=== PATIENT | female | born 1985 | race Caucasian/White ===

== ENCOUNTER 2024-07-04 18:37 | Observation (INO) | payer SELFPAY ==
[2024-07-04] VITALS (17 sets, daily range): BP systolic 104–186; BP diastolic 75–116; PULSE 70–104; RESP 11–23; TEMP 36.7–37; O2SAT 93–99; BMI 31.3
--- NOTE | 2024-07-04 18:49 | CTR_ITS ---
PROCEDURE INFORMATION: Exam: CT Head Without Contrast Exam date and time: 07/04/2024 6:55 PM Age: 39 years old Clinical indication: Stroke-like symptoms; RT lower extremity weakness; Additional info: CVA symptoms TECHNIQUE: Imaging protocol: Computed tomography of the head without contrast. Radiation optimization: All CT scans at this facility use at least one of these dose optimization techniques: automated exposure control; mA and/or kV adjustment per patient size (includes targeted exams where dose is matched to clinical indication); or iterative reconstruction. Other technique: STROKE PROTOCOL was implemented. COMPARISON: No relevant prior studies available. RADIATION DOSE METRICS: Total DLP (mGy-cm): 1053.58 FINDINGS: Brain: Normal. No hemorrhage. Unremarkable white matter. No mass effect. Cerebral ventricles: No ventriculomegaly. Paranasal sinuses: Visualized sinuses are unremarkable. No fluid levels. Mastoid air cells: Visualized mastoid air cells are well aerated. Bones: Unremarkable. No acute fracture. Soft tissues: Unremarkable. CT/CT head wo con* [id number] IMPRESSION: No acute intracranial abnormality. ASSESSMENT: ASPECTS ([facility] Stroke Program Early CT Score) is 10.
--- NOTE | 2024-07-04 18:49 | XRR_ITS ---
PROCEDURE INFORMATION: Exam: XR Chest Exam date and time: 07/04/2024 7:09 PM Age: 39 years old Clinical indication: Shortness of breath and other: AMS; Additional info: Altered mental status TECHNIQUE: Imaging protocol: Radiologic exam of the chest. Views: 1 view. COMPARISON: No relevant prior studies available. FINDINGS: Lungs: Unremarkable. No consolidation. Pleural spaces: Unremarkable. No pleural effusion. No pneumothorax. Heart/Mediastinum: Unremarkable. No cardiomegaly. Bones/joints: Unremarkable. XR/XR chest 1V portable [id number] IMPRESSION: No acute findings.
[2024-07-04 18:55] LABS: Glucose Point of Care 158 mg/dL (70-110)
--- NOTE | 2024-07-04 18:55 | CTR_ITS ---
PROCEDURE INFORMATION: Exam: CTA Head With Contrast, Arteriography Exam date and time: 07/04/2024 7:00 PM Age: 39 years old Clinical indication: Weakness; Additional info: CVA workup TECHNIQUE: Imaging protocol: Computed tomographic angiography of the head with contrast. Exam focused on the arteries. 3D rendering (Not supervised by radiologist): MIP and/or 3D reconstructed images were created by the technologist. Radiation optimization: All CT scans at this facility use at least one of these dose optimization techniques: automated exposure control; mA and/or kV adjustment per patient size (includes targeted exams where dose is matched to clinical indication); or iterative reconstruction. Contrast material: OMNIPAQUE 350; Contrast volume: 100 ml; Contrast route: INTRAVENOUS (IV); COMPARISON: CT head wo con* [id number] 07/04/2024 6:55 PM RADIATION DOSE METRICS: Total DLP (mGy-cm): 426.42 FINDINGS: ANTERIOR CIRCULATION: Right internal carotid artery: Intracranial segment is patent with no significant stenosis. No aneurysm. Right middle cerebral artery: No occlusion or significant stenosis. No aneurysm. Right anterior cerebral artery: No occlusion or significant stenosis. No aneurysm. Left internal carotid artery: Intracranial segment is patent with no significant stenosis. No aneurysm. Left middle cerebral artery: No occlusion or significant stenosis. No aneurysm. Left anterior cerebral artery: No occlusion or significant stenosis. No aneurysm. POSTERIOR CIRCULATION: Right vertebral artery: No occlusion or significant stenosis. No aneurysm. Left vertebral artery: No occlusion or significant stenosis. No aneurysm. Basilar artery: No occlusion or significant stenosis. No aneurysm. Right posterior cerebral artery: No occlusion or significant stenosis. No aneurysm. Left posterior cerebral artery: No occlusion or significant stenosis. No aneurysm. Brain: No definite mass, mass effect, or midline shift. Cerebral ventricles: No ventriculomegaly. Bones/joints: Unremarkable. No acute fracture. Soft tissues: Unremarkable. PROCEDURE INFORMATION: Exam: CTA Neck With Contrast Exam date and time: 07/04/2024 7:00 PM Age: 39 years old Clinical indication: Weakness; Additional info: CVA workup TECHNIQUE: Imaging protocol: Computed tomographic angiography of the neck with contrast. Exam focused on the cervical segments of the vasculature. 3D rendering (Not supervised by radiologist): MIP and/or 3D reconstructed images were created by the technologist. Radiation optimization: All CT scans at this facility use at least one of these dose optimization techniques: automated exposure control; mA and/or kV adjustment per patient size (includes targeted exams where dose is matched to clinical indication); or iterative reconstruction. Contrast material: OMNIPAQUE 350; Contrast volume: 100 ml; Contrast route: INTRAVENOUS (IV); COMPARISON: CT head wo con* [id number] 07/04/2024 6:55 PM RADIATION DOSE METRICS: Total DLP (mGy-cm): 426.42 FINDINGS: Right common carotid artery: No stenosis. No dissection or occlusion. Right internal carotid artery: No stenosis of the extracranial segment. No dissection or occlusion. Right external carotid artery: No occlusion or stenosis of the origin. Left common carotid artery: No stenosis. No dissection or occlusion. Left internal carotid artery: No stenosis of the extracranial segment. No dissection or occlusion. Left external carotid artery: No occlusion or stenosis of the origin. Right vertebral artery: No stenosis. No dissection or occlusion. Left vertebral artery: No stenosis. No dissection or occlusion. Soft tissues: Normal. No significant soft tissue swelling. Bones/joints: No acute fracture. CT/CT angio headneck* [id number] IMPRESSION: No large vessel stenosis or occlusion. IMPRESSION: No stenosis or occlusion. REFERENCES: NASCET CRITERIA. The degree of stenosis in the cervical segment of the internal carotid artery is based on NASCET criteria. Normal is no stenosis. Mild is less than 50% stenosis. Moderate is 50-69% stenosis. Severe is 70% to 99% stenosis. Total occlusion is no detectable patent lumen.
[2024-07-04 19:06] LABS: Basophils % 0.3 %; Eosinophils # 0.2 10^3/uL (0.0-0.8); Eosinophils % 2.1 %; Hematocrit 47.3 % (36-47); Lymphocytes # 2.8 10^3/uL (0.8-4.8); Lymphocytes % 28.5 %; Mean Corpuscular HGB Conc 33.6 g/dL (30-55); Mean Corpuscular Hemoglobin 31.4 pg (27-33); Mean Corpuscular Volume 93.5 fl (85-98); Mean Platelet Volume 10.6 fL (7.4-10.4); Monocytes # 0.5 10^3/uL (0.2-0.9); Monocytes % 4.8 %; Neutrophils # 6.26 10^3/uL (1.8-7.7); Neutrophils % 63.9 %; Nucleated Red Blood Cells % 0 %; Platelet Count 372 10^3/cmm (157-399); Red Blood Count 5.06 10^6/uL (3.85-5.65); Red Cell Distribution Width 11.6 % (12.1-15.1)
--- NOTE | 2024-07-04 19:13 | ECG_ITS ---
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 Measurements Intervals [place] Rate: 85 P: 45 CT: 128 QRS: 59 QRSD: 86 T: 37 QT: 352 QTc: 420 Interpretive Statements SINUS RHYTHM POSSIBLE LEFT ATRIAL ENLARGEMENT [-0.1mV P-WAVE IN V1/V2] No previous ECG available for comparison Electronically Signed On 07-04-2024 23:26:29 CDT by Maida Morrell M.D. [email or web address]
[2024-07-04] MEDS: iohexol 350 mg/mL 500 mL Btl (per mL) IV (19:15)
[2024-07-04 19:37] LABS: Bilirubin Urine Negative (Negative); Blood Urine Negative (Negative); Glucose Urine UA Negative (Normal); Ketones Urine Negative (Negative); Leukocyte Esterase Urine Negative (Negative); Nitrate Urine Negative (Negative); Protein Urine Negative (Negative); Urine Appearance Clear (CLEAR); Urine Color Yellow (Yellow); Urobilinogen Urine 0.2 mg/dL (Negative)
[2024-07-04 19:37] LABS: Partial Thromboplastin Time 26.1 SECONDS (23.9-36.7)
--- NOTE | 2024-07-04 19:37 | ED_ITS ---
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 Patient presents to the ER by EMS for further assessment and management. Associated symptoms: Deny abdominal pain, chest pain, fever(s), headache(s) or nausea Related Data Allergies Allergy/AdvReac Type Severity Reaction Status Date / Time No Known Allergies Allergy Verified 07/04/24 18:45 Review of Systems 2 General: Reports: 10 or more systems reviewed and unremarkable except in HPI and below Const: Denies: fever(s), chills, fatigue or malaise Eyes: Denies: change in vision or blurry vision Card: Denies: chest pain or palpitations Resp: Denies: dyspnea or productive cough GI: Denies: abdominal pain, nausea or vomiting : Denies: flank pain Musc: Denies: extremity pain or extremity swelling Skin/Breast: Denies: rash or pruritus Neuro: Reports: weakness in extremities, sensory changes and Slurred speech present; Denies: headache(s) Psych: Denies: anxiety or depression [place]/Lymph: Denies: easy bleeding All/Imm: Denies: urticaria, throat swelling or facial swelling [facility] ED 2 Female Reproductive History: Date of last menstrual period: 06/02/24 Physical Exam 2 Const: COMMON NORMALS: no acute distress, patient oriented x3 and healthy appearing (Patient appears to have somewhat slightly slurred speech on exam with quest) OTHER: Questionable left lower drift of the left lower leg noted full sensation noted distally with slightly slurred speech and right-sided nasolabial fold reduction no other focal neurodeficits appreciated and formal NIH appears to be less than 3-4. HENMT: COMMON NORMALS: normocephalic and atraumatic HEAD & SCALP: n ormocephalic and atraumatic Eye: COMMON NORMALS: Equal, round and reactive pupils present and EOMs intact bilaterally PUPIL: Yes Equal, round and reactive pupils present Neck/C-Spine: COMMON NORMALS: full ROM, supple and no JVD Lymph: LYMPHATIC: no lymphadenopathy noted Chest: COMMONS NORMALS: normal inspection of the chest and normal palpation of entire chest wall Resp: COMMON NORMALS: normal respiratory effort, No retractions and clear to auscultation bilaterally EFFORT & INSPECTION: Yes able to speak in complete sentences and Yes symmetric chest movement AUSCULTATION: clear to auscultation bilaterally Cardio: COMMON NORMALS: no JVD, regular rate and regular rhythm RATE: r egular rate RHYTHM: regular rhythm GI: COMMON NORMALS: Normal to inspection, nondistended, normoactive bowel sounds present, Soft to palpation and non-tender INSPECTION: Yes normal to inspection PALPATION: Yes Soft to palpation : COMMON NORMALS: Yes no CVA tenderness BLADDER/KIDNEY EXAM: Yes no CVA tenderness Back/Pelvis: COMMON NORMALS: no CVA tenderness Extremity: COMMON NORMALS: normal to inspection and full ROM Neuro: COMMON NORMALS: patient oriented x3, CN's II-XII intact bilaterally, moves all extremities and no focal motor deficits Psych: COMMON NORMALS: mental status grossly normal, Normal thought process present, cooperative and normal affect THOUGHT PROCESS: Normal thought process present Skin: COMMON NORMALS: no rashes or lesions noted GENERAL SKIN EXAM: no rashes or lesions noted Course 2 Vital Signs: Vital signs: Vital Signs Temperature 98.1 F 07/04/24 18:38 Pulse Rate 104 H 07/04/24 19:54 Respiratory Rate 18 07/04/24 18:38 Blood Pressure 186/115 07/04/24 19:54 Pulse Oximetry 98 07/04/24 19:54 Oxygen Delivery Me thod Room Air 07/04/24 18:38 MDM - Syncope Medical Decision Making Patient immediately upon presentation was noted be a level [address] imaging the head without contrast came back negative discussed patient's case with Dr. Luna on-call neurologist in which based upon patient's current symptoms this does not currently qualify for TNKase or tPA. I will continue to follow with CT angiogram of the head and neck as well as additional workup. Discussed patient's case, Dr. Luna that recommends admission to the hospitalist with MRI imaging the morning additional workup for the patient's associated symptoms. The patient remained in stable condition her symptoms are starting to improve she is still noted to be somewhat hypertensive. Patient will be placed in observation status discussed patient's case to Dr. Walker on- call hospitalist is granted acceptance observation to ICU. Lab Data I reviewed the patient's lab results. 07/04/24 18:47 07/04/24 18:47 Radiology Impressions Chest X-Ray 07/04/24 18:49 IMPRESSION: No acute findings. Head CT 07/04/24 18:49 IMPRESSION: No acute intracranial abnormality. ASSESSMENT: ASPECTS ([facility] Stroke Program Early CT Score) is 10. ADDENDUM: 07/04/241922 Findings were discussed with CYNTHIA SHIELDS at 07/04/2024 7:20 PM CDT. Head/Neck CTA 07/04/24 18:55 IMPRESSION: No large vessel stenosis or occlusion. IMPRESSION: No stenosis or occlusion. REFERENCES: NASCET CRITERIA. The degree of stenosis in the cervical segment of the internal carotid artery is based on NASCET criteria. Normal is no stenosis. Mild is less than 50% stenosis. Moderate is 50-69% stenosis. Severe is 70% to 99% stenosis. Total occlusion is no detectable patent lumen. Laboratory Results WBC 9.80 10^3/uL (3.29-11.43) 07/04/24 18:47 RBC 5.06 10^6/uL (3.85-5.65) 07/04/24 18:47 Hgb 15.90 g/dL (11.27-16.99) 07/04/24 18:47 Hct 47.3 % (36-47) H 07/04/24 18:47 MCV 93.5 fl (85-98) 07/04/24 18:47 MCH 31.4 pg (27-33) 07/04/24 18:47 MCHC 33.6 g/dL (30-55) 07/04/24 18:47 RDW 11.6 % (12.1-15.1) L 07/04/24 18:47 Plt Count 372 10^3/cmm (157-399) 07/04/24 18:47 MPV 10.6 fL (7.4-10.4) H 07/04/24 18:47 Neut % (Auto) 63.9 % 07/04/24 18:47 Lymph % (Auto) 28.5 % 07/04/24 18:47 [place] % (Auto) 4.8 % 07/04/24 18:47 Eos % (Auto) 2.1 % 07/04/24 18:47 Baso % (Auto) 0.3 % 07/04/24 18:47 Neut # (Auto) 6.26 10^3/uL (1.8-7.7) 07/04/24 18:47 Lymph # (Auto) 2.8 10^3/uL (0.8-4.8) 07/04/24 18:47 [place]ley # (Auto) 0.5 10^3/uL (0.2-0.9) 07/04/24 18:47 Eos # (Auto) 0.2 10^3/uL (0.0-0.8) 07/04/24 18:47 Baso # (Auto) 0.0 10^3/uL (0.0-0.1) 07/04/24 18:47 Nucleated RBC % (auto) 0 % 07/04/24 18:47 Nucleated RBCs # 0.0 /100WBC 07/04/24 18:47 APTT 26.1 SECONDS (23.9-36.7) 07/04/24 18:47 POC Glucose 158 mg/dL (70-110) H 07/04/24 18:52 Urine Color Yellow (Yellow) 07/04/24 19:28 Urine Appearance Clear (CLEAR) 07/04/24 19:28 Urine pH 7.0 (5-7) 07/04/24 19:28 Ur Specific [place] 1.080 (1.005-1.030) H 07/04/24 19:28 Urine Protein Negative (Negative) 07/04/24 19:28 Urine Glucose (UA) Negative (Normal) 07/04/24 19:28 Urine Ketones Negative (Negative) 07/04/24 19:28 Urine Blood Negative (Negative) 07/04/24 19:28 Urine Nitrate Negative (Negative) 07/04/24 19:28 Urine Bilirubin Negative (Negative) 07/04/24 19:28 Urine Urobilinogen 0.2 mg/dL (Negative) 07/04/24 19:28 Ur Leukocyte Esterase Negative (Negative) 07/04/24 19:28 Urine RBC 0-2 /hpf (0-2) 07/04/24 19:28 Urine WBC 11-20 /hpf (0-5) H 07/04/24 19:28 Ur Squamous Epith Cells 6-10 /hpf (0-5) 07/04/24 19:28 Amorphous Sediment Not Reportable 07/04/24 19:28 Urine Bacteria 1+ /hpf (NONE) H 07/04/24 19:28 Hyaline Casts 0-4 /lpf H 07/04/24 19:28 Urine Opiates Screen Negative ng/mL (Negative) 07/04/24 19:28 Ur Barbiturates Screen Negative ng/mL (Negative) 07/04/24 19:28 Ur Phencyclidine Scrn Negative ng/mL (Negative) 07/04/24 19:28 Ur Amphetamines Screen Negative ng/mL (Negative) 07/04/24 19:28 U Benzodiazepines Scrn Negative ng/mL (Negative) 07/04/24 19:28 Urine Cocaine Screen Negative ng/mL (Negative) 07/04/24 19:28 U Marijuana (THC) Screen Negative ng/mL (Negative) 07/04/24 19:28 Blood Type O Positive 07/04/24 19:12 Rho(D) Type Rh positive 07/04/24 19:12 Antibody Screen Negative 07/04/24 19:12 Crossmatch See Detail 07/04/24 19:12 All radiology interpretation(s) finalized by discharge Discharge Plan Discharge Patient Disposition: Placed in Observation Clinical Impression: [id number]-[id number] syndrome Coding Level of Care Code ED [employer]urb[employer]rector for Kem Hamilton
[2024-07-04 19:41] LABS: Add Urine Microscopic? YES; Bacteria Urine 1+ /hpf; Hyaline Casts Urine 0-4 /lpf; RBC Urine 0-2 /hpf (0-2)
[2024-07-04] MEDS: labetalol 5 mg/mL SDV 20mL 10 MG IV (19:53)
--- NOTE | 2024-07-04 19:59 | PC.NURSE ---
While attempting to administer 10mg/2ml of labetalol, patient received 5mg/1ml until she stated Stop! It feels warm. IV patent.
[2024-07-04 20:25] LABS: Amphetamines Screen Urine Negative (Negative); Barbiturates Screen Urine Negative (Negative); Benzodiazepines Screen Urine Negative (Negative); Cocaine Screen Urine Negative (Negative); Opiate Screen Urine Negative (Negative); PCP Screen Urine Negative (Negative); THC Screen Urine Negative (Negative)
--- NOTE | 2024-07-04 20:41 | PM.HP ---
Providers/Chief Complaint Chief Complaint: Syncope History of Present Illness Avril Lange is a 39 year old female with a past medical history significant for bipolar disorder who presents emergency department with strokelike symptoms with onset at 4:30 PM today. Patient reports she was driving when symptoms occurred. She been driving 11 hours today traveling from [facility] to [place]. She states she got an overwhelming sensation consisting of the smell of coffee without any coffee around. Her symptoms then proceeded to have slurred speech, left-sided weakness, lightheadedness and presyncopal symptoms. She denies any prior similar episodes before. She states she only takes Abilify for history of bipolar disorder. She reports her dose has been very stable. She denies any other triggers or alleviating or aggravating factors. She denies any family history of neurological disease, TIAs or stroke. She denies any personal history of seizure disorder, neurological disease, TIAs or strokes. Patient noted to be hypertensive in the emergency department. She denies prior history of hypertension. She states her blood pressure is usually around 140/70. 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 Patient discussed with ED provider. She reportedly presented as a level 1 stroke activation. Her initial NIH score was 3. She was reportedly discussed with [facility] [place] Luna by ED provider who reportedly recommended against thrombolytics. Recommended admission with MRI. Review of Systems Narrative: A complete review of systems was obtained and is negative except as stated in HPI. Medications/Allergies Allergies Allergy/AdvReac Type Severity Reaction Status Date / Time No Known Allergies Allergy Verified 07/04/24 18:45 PFSH Acute PFSH: Medical History (Updated 07/04/24 @ 21:13 by Delroy Walker MD) Bipolar disorder Surgical History (Updated 07/04/24 @ 21:07 by Delroy Walker MD) No significant past surgical history Family History (Updated 07/04/24 @ 21:07 by Delroy Walker MD) Denies family history of Stroke Social History (Updated 07/04/24 @ 21:07 by Delroy Walker MD) Smoking and tobacco/nicotine status: never used tobacco/nicotine Alcohol intake: never Substance/Drug Use: never Female Reproductive History: Date of last menstrual period: 06/02/24 Vitals/I&O/Wt Last Vital Signs Temp 98.1 F 07/04/24 18:38 Pulse 104 H 07/04/24 19:54 Resp 18 07/04/24 18:38 BP 186/115 07/04/24 19:54 Pulse Ox 98 07/04/24 19:54 O2 Del Method Room Air 07/04/24 18:38 Weight last 48 hrs Weight 90.718 kg Physical Exam Narrative: General: Patient is awake and alert. Pleasant. Head: EOM intact. Subtle left facial droop. Neck: No JVD. Cardiovascular: RRR. No gallops. No murmurs. Lungs: Clear to auscultation, no use of accessory muscles, no crackles or wheezes. Skin: No jaundice. No rashes. Abdomen: Normal bowel sounds, abdomen soft and nontender. Genito Urinary: Genital exam not performed since complaints not related. Rectal: Rectal exam not performed since no symptoms indicated blood loss. Extremities: No cyanosis or clubbing. Musculoskeletal: No swollen or erythematous joints. Neurological: Moves all 4 extremities. No myoclonus. Data 07/04/24 18:47 07/04/24 18:47 A&P Assessment and plan (1) Stroke-like symptoms: (2) Elevated blood pressure reading: (3) Hyperglycemia: (4) Bipolar disorder: Plan Strokelike episode - Lateralizing symptoms concerning for TIA or stroke - CT head, CTA head neck negative for acute stroke - MRI ordered - Neurochecks - Aspiration precautions - Seizure precautions - Start DAPT, Statin - Lipids, A1c in AM - Bedside swallow - Echo with bubble - Stroke protocol Elevated blood pressures - Allow permissive hypertension Presyncope - Echo ordered - Telemetry monitoring - Fall precautions Hyperglycemia - A1c in AM History of bipolar disorder - Plan continue home medications DVT prophylaxis: Lovenox CODE STATUS: Full code PDMP PDMP Reviewed: Not Reviewed Attestations Medical Necessity Statement*: Patient presents with strokelike episodes concerning for underlying TIA or stroke versus other neurological disorder with expected hospitalization not to cross 2 midnights for further workup. Coding Level of Care Code Acute Code for Chg Fwd Diagnoses Stroke-like symptoms R29.90 Elevated blood pressure reading R03.0 Hyperglycemia R73.9 Bipolar disorder F31.9
[2024-07-04] MEDS: sodium chloride 0.9% 500 ML 999 ML IV (20:46)
[2024-07-04] MEDS: sodium chloride 0.9% 1,000 ML 999 ML IV (20:46)
[2024-07-04 21:52] LABS: Troponin(5th) Baseline < 6 ng/L (0-10)
[2024-07-04 22:02] LABS: Alanine Aminotransferase 28 U/L (0-33); Albumin Level 4.5 g/dL (3.5-5.2); Alkaline Phosphatase 103 U/L (35-105); Blood Urea Nitrogen 14 mg/dL (6-20); Carbon Dioxide 26 mmol/L (22-29); Chloride 98 mmol/L (98-107); Creatinine Clr Calc Pharmacy 85.6077; Globulin 2.7 g/dL (1.3-4.6); Glomerular Filtration Rate 61.1 mL/min (90-130); Glucose 138 mg/dL (65-115); NT Pro B Type Natriuretic Pept < 36 pg/mL (0-125); Osmolality Calculated 287 mOsm/kg (285-295); Sodium 137 mmol/L (136-145); Total Bilirubin 0.7 mg/dL (0.15-1.2); Total Protein 7.2 g/dL (6.6-8.7)
[2024-07-04 22:03] LABS: Anion Gap 16.8 (5-19); Aspartate Amino Transferase 19 U/L (0-32); Potassium 3.8 mmol/L (3.5-5.1)
[2024-07-04 22:08] LABS: Troponin 5 2HR < 6.0 ng/L (0-10); Troponin 5 2HR Delta 0 ABS# (0-10)
[2024-07-05] VITALS (28 sets, daily range): BP systolic 116–150; BP diastolic 80–110; PULSE 34–92; RESP 15–26; TEMP 36.8; O2SAT 92–100
--- NOTE | 2024-07-05 00:25 | PC.NURSE ---
Pt refused Lovenox injection. Educated about risk of clotting with immobility due to hospitalization. Denied tobacco use, hormonal control, and immobility. Stated if anything abnormal in cardiac work-up was found she would be agreeable to taking, but at this point did not feel it was necessary.
[2024-07-05 00:57] LABS: Chol HDL Ratio 3.31 mg/dL (0.0-4.40); Cholesterol 205 mg/dL (0-200); HDL Cholesterol 62 mg/dL (60-100); LDL Cholesterol Calculated 123 mg/dL (50-129); LDL HDL Ratio 1.98 RATIO (0.00-3.22); Triglycerides 98 mg/dL (0-150)
[2024-07-05 01:01] LABS: Estmated Average Glucose 114; Hemoglobin A1C 5.6 % (4.0-6.0)
--- NOTE | 2024-07-05 02:33 | PC.NURSE ---
Entered room for neuro assessment. Pt stated she felt funny and left side was tingly . Noted slight left facial droop, left other spatial scientist significantly less than right, drift to left hand, and delay in movement of left leg. Dr. Walker notified of same, no new orders. After approx 15 min symptoms began to resolve, and pt stated she had metallic taste in her mouth.
--- NOTE | 2024-07-05 02:57 | PC.NURSE ---
Neuro symptoms resolved. Stated that she had vision changes and felt like her neck was stiff and she was unable to move it during earlier episode. Sister at bedside and stated that she has had non-epileptic seizures for four years.
[2024-07-05] MEDS: acetaminophen 325 mg Tablet 650 MG PO (03:09)
[2024-07-05] MEDS: enoxaparin 40 mg/0.4 mL Syringe SUBCUT (04:52)
--- NOTE | 2024-07-05 05:04 | PC.NURSE ---
Pt has had episodes of left sided weakness x4, each lasting 10-15 min before resolving. States she feels tingling to affected side then weakness and blurred vision. Stated at this time that symptoms were right sided instead of left, also lasting 10-15 min before resolving. Pt. stated she has been diagnosed with focal seizures that precede bad headaches as well.
--- NOTE | 2024-07-05 07:43 | MR_ITS ---
WS: [id number] MRI BRAIN WITH AND WITHOUT CONTRAST HISTORY: seizures COMPARISON: CT head 07/04/2024 TECHNIQUE: Multiplanar imaging performed through the brain with MultiHance 20 ml's IV. No acute infarcts are seen. Daniels-white matter differentiation is well preserved. Normal hippocampal formations. No susceptibility artifacts or prior lacunar infarcts. Ventricles and extra-axial spaces are normal. Clivus and pituitary gland are normal. Visualized posterior fossa and brainstem are also normal. No enhancing masses. LEFT frontal lobe venous angioma. Dural venous sinuses are normal. Paranasal sinuses: Well aerated with no significant disease. Mastoid air cells: Normal. Calvarium and scalp: Normal. MR/MR head wo/w con [id number] IMPRESSION: 1. No acute infarct or prior infarct. 2. No enhancing masses. 3. LEFT frontal lobe venous angioma. 4. Normal hippocampal formations.
--- NOTE | 2024-07-05 07:54 | PM.CONSULT ---
Providers/Reason For Consult Consulting Physician/Specialty*: Velasquez Luna MD neurology and epilepsy Reason for Consult*: Episode of lightheadedness/near syncope causing the patient to cake puller during a long drive from [facility] to [place] with recurrent episode 45 minutes later described as experiencing an aura described as a strong coffee smell followed by near syncope and weakness in the left arm while driving. 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 The patient stated that she was traveling on 07/04/2024 driving from [facility] to [place]. The patient stated she had been driving for approximately 11 hours and suddenly experienced an episode of lightheadedness/near syncope causing the patient to cake puller during a long drive from [facility] to [place]. The patient stated that she rolled down her tilt tray driver's window and then got out of the car and walked around to give herself a break from the driving. The patient stated that approximately 4 to 5 minutes she felt better and therefore resumed driving. But, she experienced a recurrent episode 45 minutes later described as experiencing an aura described as a strong coffee smell followed by near syncope and weakness in the left arm while driving. The patient reports a sister with a history of epilepsy. There is no family history of strokes. The patient stated that she called 911 and EMS brought the patient to [facility] emergency department. In the emergency room the patient stated that her blood pressure was elevated. The patient underwent CT angiogram of the head and neck and noncontrast head CT which were reported to be unrevealing. CBC and comprehensive metabolic panel revealed elevated creatinine of 1.1. Glucose was mildly elevated at 138. Point of contact glucose Accu-Chek 158. NIH stroke score = 0. As a result the patient was admitted to ICU to be evaluated for possible new onset temporal lobe seizures. The patient was scheduled to have head MRI with and without contrast on 07/05/2024. On neurological assessment on 07/05/2024 the patient is currently asymptomatic and examination is nonfocal. 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 Review of Systems General: Reports: 10 or more systems reviewed and unremarkable except in HPI and below Medications/Allergies Home Medications ?Medication ?Instructions ?Recorded ?Confirmed ?Last Taken ?Type No Known Home Medications 07/05/24 07/05/24 Unknown History Allergies Allergy/AdvReac Type Severity Reaction Status Date / Time No Known Allergies Allergy Verified 07/04/24 18:45 Current Medications Generic Name Dose Route Start Last Admin Trade Name Freq PRN Reason Stop Dose Admin Acetaminophen 650 mg 07/04/24 23:28 07/05/24 03:09 Acetaminophen 325 Mg Tablet PO 650 mg Q6H PRN Administration FEVER Enoxaparin Sodium 40 mg 07/05/24 05:00 07/05/24 04:52 Enoxaparin 40 Mg/0.4 Ml Syringe SUBCUT 40 mg Q24H CYNDI Administration Labetalol HCl 10 mg 07/04/24 19:16 07/04/24 19:53 Labetalol 5 Mg/Ml Sdv 20ml IV 10 mg Q10M PRN Administration Prior to thrombolytic for BP>185/110 PFSH Acute PFSH: Medical History (Updated 07/05/24 @ 08:07 by Velasquez Luna MD) Bipolar disorder Surgical History (Updated 07/04/24 @ 21:07 by Delroy Walker MD) No significant past surgical history Family History (Updated 07/04/24 @ 21:07 by Delroy Walker MD) Denies family history of Stroke Social History (Updated 07/04/24 @ 21:07 by Delroy Walker MD) Smoking and tobacco/nicotine status: never used tobacco/nicotine Alcohol intake: never Substance/Drug Use: never Female Reproductive History: Date of last menstrual period: 06/02/24 Vitals/I&O/Wt Last Vital Signs Temp 98.6 F 07/04/24 23:45 Pulse 72 07/05/24 06:00 Resp 22 H 07/05/24 05:00 BP 131/92 07/05/24 05:00 Pulse Ox 96 07/05/24 05:00 O2 Del Method Room Air 07/04/24 23:30 07/04/24 07/05/24 07/05/24 22:59 06:59 14:59 Intake Total 1740 / 1740 Balance 1740 / 1740 Weight last 48 hrs Weight 204 lb Weight 204 lb Weight 200 lb Physical Exam Narrative: Blood pressure slightly elevated 122/100. NIH stroke score = 0 The patient is alert and oriented x 3. Speech fluent. Head normocephalic. Neck supple. Cranial nerves II through XII intact. Pupils 4 mm. Motor testing 5/5 bilaterally. Throat clear. Heart regular rhythm and rate. Lungs clear. Extremities were negative for cyanosis. Deep tendon reflex reportedly symmetrical. Data 07/04/24 18:47 07/04/24 18:47 A&P Assessment and plan (1) Near syncope: Impression: 1. Episode of lightheadedness/near syncope causing the patient to cake puller during a long drive from [facility] to [place] with recurrent episode 45 minutes later described as experiencing an aura described as a strong coffee smell followed by near syncope and weakness in the left arm while driving. Plan: 1. Agree with obtaining head MRI with and without contrast to assess for space-occupying lesions and to assess for mesial temporal sclerosis 2. Syncope/seizure precautions per state law and per hospital protocol until patient has been thoroughly evaluated with EEG monitoring to confirm or exclude a underlying seizure disorder 3. Fall precautions 4. Recommend patient obtain EEG monitoring to further assess for epilepsy (note: [facility] does not have inpatient EEG monitoring or ability to perform long-term EEG monitoring). The patient stated that she will be living in [place] and the facility there has ability for long-term EEG monitoring. 5. If head MRI with and without contrast is unrevealing and patient stable from medical standpoint, patient can be discharged and referred to a neurologist and/or epileptologist to complete her neurological workup with EEG monitoring to confirm or exclude a diagnosis of epilepsy. (2) Aura: PDMP PDMP Reviewed: Not Reviewed Consult Attestations Medical Necessity Statement: The patient was evaluated by neurology for recurrent near syncope Coding Level of Care Code 25967 Diagnoses Near syncope R55 Aura R29.818
[2024-07-05] MEDS: gadobenate dimeglumine 20 mL vial IV (08:39)
[2024-07-05] MEDS: aspirin 81 mg EC Tablet PO (09:22)
--- NOTE | 2024-07-05 11:36 | MR_ITS ---
WS: [id number] MRA ANGIOGRAPHY IQUGMI[place] OF ENG HISTORY: new seizures, venous angioma COMPARISON: CT angiogram 07/04/2024 TECHNIQUE: 3-D MR angiography is performed of the [place]. All images are reviewed including source images. Distal RIGHT vertebral artery is small caliber as also noted on the prior CT angiogram. Vertebral artery may communicate with the PICA. Dominant LEFT vertebral artery is patent. Normal basilar artery and posterior cerebral arteries. Posterior communicating arteries are both patent. No aneurysms. Intracranial portion of the internal carotid arteries are normal course and caliber. No significant atherosclerosis, stenosis or aneurysm identified. Hypoplastic RIGHT A1 segment but it is patent and enhancing normally. Dominant LEFT A1 segment. A2 segments and anterior communicating artery is normal. Normal middle cerebral arteries. No paucity of vessels in the distal middle cerebral artery territory. No occlusions or thrombus. No aneurysm. MR/MR angio head wo con [id number] IMPRESSION: 1. Small caliber and absent distal RIGHT vertebral artery is probably a normal variant. Similar to the CT angiogram findings. 2. No aneurysms within the [place]. 3. Hypoplastic RIGHT A1 segment. 4. No occlusions in the middle cerebral arteries or atherosclerotic disease.
--- NOTE | 2024-07-05 14:30 | PC.OT ---
OT EVALUATION/SCREENING COMPLETED. PATIENT DEMONSTRATES NO DEFICITS OF VISUAL PERCEPTION, AROM OR MX STRENGTH. NO FURTHER SKILLED OT REQUIRED AT THIS TIME
--- NOTE | 2024-07-05 14:48 | P.PN_ITS ---
Subjective 2 Subjective: Seen this morning. Symptoms have improved however patient is slightly dizzy which she attributes to being in bed for so long and now she just sat up at the edge of the bed. Neuroexam normal. MRI head completed, left frontal lobe venous angioma. Vitals/I&O/Wt Last Vital Signs Temp 98.6 F 07/04/24 23:45 Pulse 82 07/05/24 13:00 Resp 24 H 07/05/24 13:00 BP 138/107 07/05/24 12:00 Pulse Ox 98 07/05/24 07:00 O2 Del Method Room Air 07/04/24 23:30 07/04/24 07/05/24 07/05/24 22:59 06:59 14:59 Intake Total 1740 / 1740 700 / 700 Balance 1740 / 1740 700 / 700 Weight last 48 hrs Weight 92.533 kg Weight 92.533 kg Weight 90.718 kg Physical Exam 2 Narrative: General: Patient is awake and alert. Pleasant. Head: EOM intact. Cardiovascular: RRR. No gallops. No murmurs. Lungs: Clear to auscultation, no use of accessory muscles, no crackles or wheezes. Abdomen: Normal bowel sounds, abdomen soft and nontender. Extremities: No cyanosis or clubbing. Musculoskeletal: No swollen or erythematous joints. Neurological: nonfocal Data 07/04/24 18:47 07/04/24 18:47 A&P Assessment and plan (1) Stroke-like symptoms: (2) Elevated blood pressure reading: (3) Hyperglycemia: (4) Bipolar disorder: Plan Strokelike episode - Lateralizing symptoms concerning for TIA or stroke - CT head, CTA head neck negative for acute stroke - MRI ordered - Neurochecks - Aspiration precautions - Seizure precautions - Start DAPT, Statin - Lipids, A1c in AM - Bedside swallow - Echo with bubble - Stroke protocol Elevated blood pressures - Allow permissive hypertension Presyncope - Echo ordered - Telemetry monitoring - Fall precautions Hyperglycemia - A1c in AM History of bipolar disorder - Plan continue home medications DVT prophylaxis: Lovenox CODE STATUS: Full code 07/05/2024 MRI head shows left frontal lobe angioma. Discussed with neurology at length over the phone. MRI brain recommended at this time. Will order. Further recommendations to be made after above results. Patient will likely require continuous video EEG monitoring going forward and possible transfer to a facility with that capability. Echocardiogram pending Continue aspiration precautions seizure precautions Continue DAPT, statin PT OT Discussed with Dr. Luna over the phone. PDMP PDMP Reviewed: Not Reviewed Attestations 2 Medical Necessity Statement*: Awaiting workup of new onset seizure. Will likely require transfer to higher level care for continuous video EEG monitoring. Diagnoses Stroke-like symptoms R29.90 Elevated blood pressure reading R03.0 Hyperglycemia R73.9 Bipolar disorder F31.9
--- NOTE | 2024-07-05 17:35 | P.TS_ITS ---
Transfer Summary Providers Date of Admission: 07/04/24 20:35 Date of Discharge/Transfer: 07/05/24 Attending Provider at Admission: Delroy Walker MD Attending Provider at Transfer: Marilee Davenport MD Transfer Plans: Anticipated date of transfer: 07/05/24 . Diagnoses at Discharge Discharge Diagnosis (1) Stroke-like symptoms: Status: Acute (2) Elevated blood pressure reading: Status: Acute (3) Hyperglycemia: Status: Acute (4) Bipolar disorder: Status: Acute Reason for Visit Reason for Visit Syncope Brief History: As per Dr. Walker vAril Lange is a 39 year old female with a past medical history significant for bipolar disorder who presents emergency department with strokelike symptoms with onset at 4:30 PM today. Patient reports she was driving when symptoms occurred. She been driving 11 hours today traveling from [facility] to [place]. She states she got an overwhelming sensation consisting of the smell of coffee without any coffee around. Her symptoms then proceeded to have slurred speech, left-sided weakness, lightheadedness and presyncopal symptoms. She denies any prior similar episodes before. She states she only takes Abilify for history of bipolar disorder. She reports her dose has been very stable. She denies any other triggers or alleviating or aggravating factors. She denies any family history of neurological disease, TIAs or stroke. She denies any personal history of seizure disorder, neurological disease, TIAs or strokes. Patient noted to be hypertensive in the emergency department. She denies prior history of hypertension. She states her blood pressure is usually around 140/70. 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 Patient discussed with ED provider. She reportedly presented as a level 1 stroke activation. Her initial NIH score was 3. She was reportedly discussed with [facility] neurologist Dr. Luna by ED provider who reportedly recommended against thrombolytics. Recommended admission with MRI. Hospital Course Hospital Course Initially secondary to patient's symptoms she got admitted for possibility of strokelike episode. She was evaluated by neurology and is not a candidate for tPA. Symptoms had resolved this morning. She was started on aspirin statin Plavix. Seizure was never witnessed. Neurology evaluated the patient and recommended MRI brain which was completed. MRI shows left frontal lobe venous angioma which is most likely thought to be a incidental finding at this point. Seizure precautions syncope precautions per state law are recommended. MRA head also completed with no acute pathology. Neurology has evaluated the patient and is recommending further assessment for epilepsy with EEG monitoring. Patient is traveling from [place] to [place] at this time. She is experiencing intermittent left arm numbness symptoms. Stroke has been ruled out. Patient will need further neurological workup. We will be transferring her to higher level of care to complete that. Call placed to [facility] in [place]. Awaiting callback to discuss with on-call neurologist. Physical Exam Narrative: General: Patient is awake and alert. Pleasant. Head: EOM intact. Cardiovascular: RRR. No gallops. No murmurs. Lungs: Clear to auscultation, no use of accessory muscles, no crackles or wheezes. Abdomen: Normal bowel sounds, abdomen soft and nontender. Extremities: No cyanosis or clubbing. Musculoskeletal: No swollen or erythematous joints. Neurological: nonfocal TS Data Studies Completed and Pending Pending at discharge Category Date Time Status Basic Metabolic Panel AM LABS Lab 07/06/24 04:00 Ordered Complete Blood Count w/Auto AM LABS Lab 07/06/24 04:00 Ordered Magnesium AM LABS Lab 07/06/24 04:00 Ordered CV. echo w/w bubble cont [id number] Routine Ultrasound 07/05/24 00:01 Taken Completed Studies During Hospitalization Category Date Time Status CT angio head neck [CT angio headneck* [id number]] Cat Scan 07/04/24 18:[address] head wo con* [id number] Stat Cat Scan 07/04/24 18:49 Completed XR chest 1V portable [id number] Stat Exams 07/04/24 18:49 Completed MR head wo/w con [id number] Routine MRI 07/05/24 07:43 Completed MRA head [MR angio head wo con [id number]] Stat MRI 07/05/24 11:36 Completed Laboratory Last Values WBC 9.80 10^3/uL (3.29-11.43) 07/04/24 18:47 RBC 5.06 10^6/uL (3.85-5.65) 07/04/24 18:47 Hgb 15.90 g/dL (11.27-16.99) 07/04/24 18:47 Hct 47.3 % (36-47) H 07/04/24 18:47 MCV 93.5 fl (85-98) 07/04/24 18:47 MCH 31.4 pg (27-33) 07/04/24 18:47 MCHC 33.6 g/dL (30-55) 07/04/24 18:47 RDW 11.6 % (12.1-15.1) L 07/04/24 18:47 Plt Count 372 10^3/cmm (157-399) 07/04/24 18:47 MPV 10.6 fL (7.4-10.4) H 07/04/24 18:47 Neut % (Auto) 63.9 % 07/04/24 18:47 Lymph % (Auto) 28.5 % 07/04/24 18:47 [place] % (Auto) 4.8 % 07/04/24 18:47 Eos % (Auto) 2.1 % 07/04/24 18:47 Baso % (Auto) 0.3 % 07/04/24 18:47 Neut # (Auto) 6.26 10^3/uL (1.8-7.7) 07/04/24 18:47 Lymph # (Auto) 2.8 10^3/uL (0.8-4.8) 07/04/24 18:47 [place] # (Auto) 0.5 10^3/uL (0.2-0.9) 07/04/24 18:47 Eos # (Auto) 0.2 10^3/uL (0.0-0.8) 07/04/24 18:47 Baso # (Auto) 0.0 10^3/uL (0.0-0.1) 07/04/24 18:47 Nucleated RBC % (auto) 0 % 07/04/24 18:47 Nucleated RBCs # 0.0 /100WBC 07/04/24 18:47 APTT 26.1 SECONDS (23.9-36.7) 07/04/24 18:47 Sodium 137 mmol/L (136-145) 07/04/24 18:47 Potassium 3.8 mmol/L (3.5-5.1) 07/04/24 18:47 Chloride 98 mmol/L (98-107) 07/04/24 18:47 Carbon Dioxide 26 mmol/L (22-29) 07/04/24 18:47 Anion Gap 16.8 (5-19) 07/04/24 18:47 BUN 14 mg/dL (6-20) 07/04/24 18:47 Creatinine 1.0 mg/dL (0.5-0.9) H 07/04/24 18:47 GFR Calculation 61.1 mL/min (90-130) L 07/04/24 18:47 Glucose 138 mg/dL (65-115) H 07/04/24 18:47 POC Glucose 158 mg/dL (70-110) H 07/04/24 18:52 Estimat Average Glucose 114 07/04/24 18:47 Hemoglobin A1c 5.6 % (4.0-6.0) 07/04/24 18:47 Calculated Osmolality 287 mOsm/kg (285-295) 07/04/24 18: Calcium 9.0 mg/dL (8.5-10.5) 07/04/24 18: Total Bilirubin 0.7 mg/dL (0.15-1.2) 07/04/24 18:47 AST 19 U/L (0-32) 07/04/24 18: ALT 28 U/L (0-33) 07/04/24 18:47 Alkaline Phosphatase 103 U/L (35-105) 07/04/24 18:47 Troponin T Baseline < 6 ng/L (0-10) 07/04/24 18: Troponin T 120 Minute < 6.0 ng/L (0-10) 07/04/24 20:20 Delta Troponin T 0 ABS# (0-10) 07/04/24 20:20 C-Reactive Protein 3.0 mg/L (0.0-4.9) 07/04/24 18:47 NT-Pro-B Natriuret Pep < 36 pg/mL (0-125) 07/04/24 18:47 Total Protein 7.2 g/dL (6.6-8.7) 07/04/24 18:47 Albumin 4.5 g/dL (3.5-5.2) 07/04/24 18: Globulin 2.7 g/dL (1.3-4.6) 07/04/24 18:47 Triglycerides 98 mg/dL (0-150) 07/04/24 20:20 Cholesterol 205 mg/dL (0-200) H 07/04/24 20:20 LDL Cholesterol, Calc 123 mg/dL (50-129) 07/04/24 20:20 HDL Cholesterol 62 mg/dL (60-100) 07/04/24 20:20 LDL/HDL Ratio 1.98 RATIO (0.00-3.22) 07/04/24 20:20 Cholesterol/HDL Ratio 3.31 mg/dL (0.0-4.40) 07/04/24 20:20 Urine Color Yellow (Yellow) 07/04/24 19:28 Urine Appearance Clear (CLEAR) 07/04/24 19:28 Urine pH 7.0 (5-7) 07/04/24 19:28 Ur Specific [place] 1.080 (1.005-1.030) H 07/04/24 19:28 Urine Protein Negative (Negative) 07/04/24 19: Urine Glucose (UA) Negative (Normal) 07/04/24 19:28 Urine Ketones Negative (Negative) 07/04/24 19:28 Urine Blood Negative (Negative) 07/04/24 19:28 Urine Nitrate Negative (Negative) 07/04/24 19: Urine Bilirubin Negative (Negative) 07/04/24 19:28 Urine Urobilinogen 0.2 mg/dL (Negative) 07/04/24 19:28 Ur Leukocyte Esterase Negative (Negative) 07/04/24 19:28 Urine RBC 0-2 /hpf (0-2) 07/04/24 19:28 Urine WBC 11-20 /hpf (0-5) H 07/04/24 19:28 Ur Squamous Epith Cells 6-10 /hpf (0-5) 07/04/24 19:28 Amorphous Sediment Not Reportable 07/04/24 19:28 Urine Bacteria 1+ /hpf (NONE) H 07/04/24 19:28 Hyaline Casts 0-4 /lpf H 07/04/24 19:28 Urine Opiates Screen Negative ng/mL (Negative) 07/04/24 19:28 Ur Barbiturates Screen Negative ng/mL (Negative) 07/04/24 19:28 Ur Phencyclidine Scrn Negative ng/mL (Negative) 07/04/24 19:28 Ur Amphetamines Screen Negative ng/mL (Negative) 07/04/24 19:28 U Benzodiazepines Scrn Negative ng/mL (Negative) 07/04/24 19:28 Urine Cocaine Screen Negative ng/mL (Negative) 07/04/24 19:28 U Marijuana (THC) Screen Negative ng/mL (Negative) 07/04/24 19:28 Blood Type Cancelled 07/04/24 19:12 Rho(D) Type Cancelled 07/04/24 19:12 Antibody Screen Cancelled 07/04/24 19:12 Crossmatch See Detail 07/04/24 19:12 Radiology Impressions Chest X-Ray 07/04/24 18:49 IMPRESSION: No acute findings. Head CT 07/04/24 18:49 IMPRESSION: No acute intracranial abnormality. ASSESSMENT: ASPECTS ([place] Stroke Program Early CT Score) is 10. ADDENDUM: 07/04/241922 Findings were discussed with CYNTHIA SHIELDS at 07/04/2024 7:20 PM CDT. Head/Neck CTA 07/04/24 18:55 IMPRESSION: No large vessel stenosis or occlusion. IMPRESSION: No stenosis or occlusion. REFERENCES: NASCET CRITERIA. The degree of stenosis in the cervical segment of the internal carotid artery is based on NASCET criteria. Normal is no stenosis. Mild is less than 50% stenosis. Moderate is 50-69% stenosis. Severe is 70% to 99% stenosis. Total occlusion is no detectable patent lumen. Head MRI 07/05/24 07:43 IMPRESSION: 1. No acute infarct or prior infarct. 2. No enhancing masses. 3. LEFT frontal lobe venous angioma. 4. Normal hippocampal formations. Head MRA 07/05/24 11:36 IMPRESSION: 1. Small caliber and absent distal RIGHT vertebral artery is probably a normal variant. Similar to the CT angiogram findings. 2. No aneurysms within the [place] of [place]. 3. Hypoplastic RIGHT A1 segment. 4. No occlusions in the middle cerebral arteries or atherosclerotic disease. Recent Clincial Data Last Vital Signs Temp 98.6 F 07/04/24 23:45 Pulse 72 07/05/24 14:00 Resp 24 H 07/05/24 13:00 BP 138/107 07/05/24 12:00 Pulse Ox 98 07/05/24 07:00 O2 Del Method Room Air 07/04/24 23:30 Vital Signs Pulse Resp BP Pulse Ox 07/05/24 14:00 72 07/05/24 13:00 82 24 H 07/05/24 12:00 85 26 H 07/05/24 12:00 34 L 21 H 138/107 07/05/24 11:00 138/107 07/05/24 10:00 82 25 H 138/107 07/05/24 09:00 34 L 21 H 138/107 07/05/24 08:58 72 07/05/24 08:00 138/107 07/05/24 07:00 92 19 H 121/90 98 07/05/24 06:00 82 25 H 129/94 95 07/05/24 06:00 72 Intake & Output/Weight 07/03/24 07/04/24 07/05/24 07/06/24 06:59 06:59 06:59 06:59 Intake Total 1740 / 1740 700 / 700 Balance 1740 / 1740 700 / 700 Weight 92.533 kg Vitals Last Vital Signs Temp 98.6 F 07/04/24 23:45 Pulse 72 07/05/24 14:00 Resp 24 H 07/05/24 13:00 BP 138/107 07/05/24 12:00 Pulse Ox 98 07/05/24 07:00 O2 Del Method Room Air 07/04/24 23:30 TS Medications Medications Acetaminophen (Acetaminophen 325 Mg Tablet) 650 mg PO Q6H PRN PRN Reason: FEVER Last Admin: 07/05/24 03:09 Dose: 650 mg Enoxaparin Sodium (Enoxaparin 40 Mg/0.4 Ml Syringe) 40 mg SUBCUT Q24H [facility] Last Admin: 07/05/24 04:52 Dose: 40 mg Sodium Chloride (Sodium Chloride 0.9% 100 Ml Bag) 50 ml IV PRN PRN PRN Reason: Blood transfusion prime and flush Stop: 07/05/24 18:51 Discontinued Medications Aspirin (Aspirin 81 Mg Ec Tablet) 81 mg PO DAILY [facility] Last Admin: 07/05/24 09:22 Dose: 81 mg Atorvastatin Calcium (Atorvastatin 40 Mg Tablet) 40 mg PO BEDTIME [facility] Clopidogrel Bisulfate (Clopidogrel 75 Mg Tablet) 75 mg PO DAILY [facility] Last Admin: 07/05/24 09:23 Dose: Not Given Enoxaparin Sodium (Enoxaparin 40 Mg/0.4 Ml Syringe) 40 mg SUBCUT Q24H [facility] Last Admin: 07/05/24 00:01 Dose: Not Given Gadobenate Dimeglumine (Gadobenate Dimeglumine 20 Ml Vial) 20 ml IV ONCE ONE Stop: 07/05/24 08:39 Last Admin: 07/05/24 08:39 Dose: 20 ml Sodium Chloride (Sodium Chloride 0.9%) 1,000 mls @ 999 mls/hr IV .Q1H1M ONE Stop: 07/04/24 19:49 Last Infusion: 07/04/24 23:30 Dose: Infused Sodium Chloride (Sodium Chloride 0.9%) 500 mls @ 999 mls/hr IV .Q31M ONE Stop: 07/04/24 19:46 Last Infusion: 07/04/24 23:30 Dose: Infused Iohexol (Iohexol 350 Mg/Ml 500 Ml Btl (Per Ml)) 0 ml IV ONCE ONE Stop: 07/04/24 19:16 Last Admin: 07/04/24 19:15 Dose: 100 ml Labetalol HCl (Labetalol 5 Mg/Ml Sdv 20ml) 10 mg IV Q10M PRN PRN Reason: Prior to thrombolytic for BP>185/110 Last Admin: 07/04/24 19:53 Dose: 10 mg Allergies No Known Allergies Allergy (Verified 07/04/24 18:45) Home Medications No Known Home Medications 07/05/24 [History Confirmed 07/05/24] Discharge Plan Discharge Patient Disposition: Xfer Other Condition: Stable Prescriptions: No Action No Known Home Medications Discharge Diet: Regular Discharge Activity: Resume usual activity Transfer Attestations Time Spent in Transfer Care: greater than 30 min Quality Metrics Clinical Quality Measures [ No reported AMI, CVA or VTE this stay] Coding Level of Care Code Acute Code for Chg Fwd Diagnoses Stroke-like symptoms R29.90 Elevated blood pressure reading R03.0 Hyperglycemia R73.9 Bipolar disorder F31.9
--- NOTE | 2024-07-05 18:11 | PC.NURSE ---
This nurse took report from at 1810.
--- NOTE | 2024-07-05 18:28 | PC.NURSE ---
report called for transfer to room 254 bed 2
--- NOTE | 2024-07-05 19:45 | PC.NURSE ---
Report called to Ryan Salgado RN at [facility] at 1945.
--- NOTE | 2024-07-05 23:20 | PC.NURSE ---
Patient left via EMS for [facility] at 2200. Called SAMPSON Davis at [facility] to advise patient was enroute.
== END 2024-07-05 23:33 | disposition other institution (70) ==
LOC: ER 21:04 → ICU 21:11 → MEDSURG 07-05 18:32
PROVIDERS: Admitting Provider Internal Medicine; Emergency Provider Emergency Medicine; Visit Provider Internal Medicine
DX: R29.90 Unspecified symptoms and signs involving the nervous system (principal); R47.81 Slurred speech; G81.94 Hemiplegia, unspecified affecting left nondominant side; R42 Dizziness and giddiness; R55 Syncope and collapse; R03.0 Elevated blood-pressure reading, without diagnosis of hypertension; R73.9 Hyperglycemia, unspecified; F31.9 Bipolar disorder, unspecified; Z82.0 Family history of epilepsy and other diseases of the nervous system
CPT/HCPCS: 36415; 36416; 70450; 70496; 70498; 70544; 70553; 71045; 80053; 80061; 80306; 81001; 82962; 83036; 83880; 84484; 85025; 85730; 86140; 86920; 92523; 93005; 96361; 96372; 96374; 96375; 97161; 97530; 99285; C8929; G0378; J1650; J3490; J7030; J7040; J9999